=== PATIENT | female | born 1960 | race Caucasian/White ===

== ENCOUNTER 2017-05-03 15:15 | Emergency (ER) | payer SELFPAY ==
[~2017-05-03] VITALS: Ht 167.6 cm; Wt 58.0 kg
[~2017-05-03 15:15] MED LIST: BUSP10 PO; BUSP5 PO; ENAL10TA7 PO; FLUO1CRE EX; FLUO1CRE3 TOP; HYDR25 PO; TRAZ100T50; VESI10TA4 PO
[2017-05-03 15:26] VITALS: BP 148/81; PULSE 74; RESP 16; TEMP 98; O2SAT 98
[2017-05-03] MEDS ORDERED: TRAZ100T10 PO (15:36)
[2017-05-03] MEDS ORDERED: ENAL10TA PO (15:36)
[2017-05-03] MEDS ORDERED: MIRA25TA PO (15:38)
[2017-05-03] MEDS ORDERED: IBUPROFEN 800 MG TAB PO ONE (15:45)
[2017-05-03] MEDS ORDERED: METHOCARBAMOL 500 MG TAB PO ONE (15:45)
--- NOTE | 2017-05-03 15:56 | PD ---
HPI Chief Complaint: Musculoskeletal Complaint Time Seen by Provider: 15:40 Travel History International Travel<30 days: No Contact w/Intl Traveler<30days: No Traveled to known affect area: No History of Present Illness HPI 57-year-old female presents to the emergency department complaining of right shoulder pain since Saturday after moving mulch. He is requesting a CT scan; she was told by [facility] [place] that we would do a CT scan for her. Reports decreased range of motion secondary to pain. Denies paresthesias, loss of sensation. Denies fever, vomiting. Has taken hydrocodone for symptom management. Rates pain 10/10 with movement. Rates pain 7/10 at rest. Worse with movement. Better at rest. Dr. Quinones is PCP. No known allergies. Has no other medical complaints. No other modifying factors or associated signs and symptoms. PFSH Past Medical History Anxiety: Yes Diabetes: Yes Hypertension: Yes Influenza Vaccination: Yes ?: Not Past Surgical History Surgical History: No Previous Surgery Social History Alcohol Use: No Tobacco Use: Yes (ONE PPD) Substance Use: No Allergies-Medications (Allergen,Severity, Reaction): Coded Allergies: No Known Allergies (Verified Adverse Reaction, Unknown, 05/03/17) Reported Meds & Prescriptions Reported Meds & Active Scripts Active Reported Myrbetriq (Mirabegron) 25 Mg Tab 25 Mg PO DAILY Enalapril (Enalapril Maleate) 10 Mg Tab 10 Mg PO DAILY Trazodone (Trazodone HCl) 100 Mg Tablet 100 Mg PO HS PRN Review of Systems Except as stated in HPI: all other systems reviewed are Neg Physical Exam Narrative GENERAL: Well-nourished, well-developed female patient, in no acute distress SKIN: Warm and dry. HEAD: Atraumatic. Normocephalic. EYES: Pupils equal and round. No scleral icterus. No injection or drainage. ENT: Mucosa pink and moist. Airway patent. NECK: Supple. Trachea midline. CARDIOVASCULAR: Regular rate. RESPIRATORY: No accessory muscle use. MUSCULOSKELETAL: Right shoulder with limited range of motion; less than 45 abduction; right shoulder with no obvious deformities; shoulders equal; without erythema, edema, ecchymosis; tenderness on palpation to the anterior aspect. 5/ 5 health safety engineer strength bilaterally. Right upper extremity is supple and nontender with 2+ radial pulses and sensory intact without erythema or edema. NEUROLOGICAL: Awake and alert. Oriented 3. No obvious cranial nerve deficits. Motor grossly within normal limits. Normal speech. No obvious deformities. No clubbing. No cyanosis. No edema. PSYCHIATRIC: Appropriate mood and affect; insight and judgment normal. Data Data Last Documented VS Vital Signs Date Time Temp Pulse Resp B/P (MAP) Pulse Ox O2 Delivery O2 Flow Rate FiO2 05/03/17 15:26 98.0 74 16 148/81 (103) 98 Orders Orders Shoulder, Complete (>2vws) (05/03/17 15:45) [facility] Medical Decision Making Medical Screen Exam Complete: Yes Emergency Medical Condition: Yes Medical Record Reviewed: Yes Differential Diagnosis Rotator cuff tear, shoulder strain, shoulder injury, shoulder joint separation Narrative Course 57-year-old female with right shoulder pain and possible injury after moving mulch. She is requesting a CT scan because [facility] [place] [facility] told her to come to the ER for CT scan. I advised the patient that I could do an x-ray and then she needs to follow up for MRI of the shoulder. Shoulder x-ray, ibuprofen , Robaxin, and arm sling ordered for support. 1553: AMA: The risks of leaving against medical advice without further evaluation treatment were discussed with the patient. These risks include cardiac dysfunction, cardiac dysrhythmia, possible heart attack, possible stroke or . The patient indicated understanding of these risks and appeared to have the capacity to make this decision. Diagnosis Primary Impression: Left against medical advice Disposition: 07 AGAINST MEDICAL ADVICE May Hu May 03, 2017 15:56
== END 2017-05-03 16:13 | disposition left against medical advice (07) ==
LOC: PHEFT 15:15
DX: M25.511 Pain in right shoulder (principal); I10 Essential (primary) hypertension; F17.200 Nicotine dependence, unspecified, uncomplicated
CPT/HCPCS: 99282